=== PATIENT | male | born 1990 | race Caucasian/White ===

== ENCOUNTER 2024-11-14 13:58 | Emergency (ER) | payer OTHER ==
[~2024-11-14] VITALS: Ht 182.9 cm; Wt 65.8 kg
[~2024-11-14 13:58] MED LIST: CEPH500 PO; HYDACE5 PO; IBUP800 PO; NAPR500 PO; PENVK500 PO; PROM25 PO; RXPENVK250 PO; RXPROCODSY PO; RXTRAM50 PO; TRAM50 PO
[2024-11-14] MEDS ORDERED: EPINEPhrine HCl 1 MG/ML 1ML Amp IM ONE (14:40)
[2024-11-14] MEDS ORDERED: EpiNEPhrine 1 MG/1 ML 1ML Vial IM ONE (14:40)
[2024-11-14] MEDS ORDERED: NS 1,000 ML IV SCH ×3 (14:40→17:35)
[2024-11-14] MEDS ORDERED: DiphenhydrAMINE HCl 50 MG/ML 1ML Vial IV ONE ×2 (14:50→17:35)
[2024-11-14] MEDS ORDERED: Famotidine 10 MG/ML 2ML Vial IV ONE (14:50)
[2024-11-14] MEDS ORDERED: Ondansetron HCl 2 MG / ML 2ML Vial IV ONE (14:55)
[2024-11-14 14:57] LABS: Hematocrit 53.5 % (37.0-53.0); Hemoglobin 18.2 g/dL (13.5-17.5); Mean Corpuscular HGB 29.5 pg (26.0-34.0); Mean Corpuscular Volume 87 fL (80-100); Mean Platelet Volume 10.6 fL (9.1-12.4); Platelet Count 315 K/mm3 (150-400); RDW Standard Deviation 38.5 fL (35.1-46.3); Red Blood Cell Count 6.17 M/mm3 (4.30-5.90); White Blood Cell Count 27.59 K/mm3 (4.00-11.30)
[2024-11-14 15:19] LABS: Albumin, Blood 3.5 g/dL (3.4-5.0); Albumin/Globulin Ratio 1.1 (0.8-1.8); Bilirubin, Total 0.5 mg/dL (0.1-1.0); Bun/Creatinine Ratio 8.6 (12.0-20.0); Calcium, Blood 8.6 mg/dL (8.5-10.1); Creatinine, Blood 1.05 mg/dL (0.60-1.20); Globulin, Blood 3.3 g/dL (2.2-4.0); Potassium, Blood 3.8 mmol/L (3.5-5.5); Total Protein, Blood 6.8 g/dL (6.4-8.2)
[2024-11-14 15:29] LABS: Free Thyroxine 1.09 ng/dL (0.70-1.60); Thyroid Stimulating Hormone 2.72 uIU/mL (0.360-4.800); Triiodothyronine, Free 2.94 pg/mL (2.18-3.98)
[2024-11-14 15:33] LABS: CORONAVIRUS COVID-19 AG Negative (NEGATIVE); INFLUENZA A AG Negative (NEGATIVE); INFLUENZA B AG Negative (NEGATIVE)
[2024-11-14 15:34] LABS: BAND PERCENT MAN 1 % (0-8); BASOPHILS PERCENT MAN 0 % (0-2); EOSINOPHILS ABSOLUTE MAN 0.82 K/mm3 (0.00-0.68); EOSINOPHILS PERCENT MAN 3 % (0-6); LYMPHOCYTES ABSOLUTE MAN 5.51 K/mm3 (0.84-5.20); LYMPHOCYTES PERCENT MAN 20 % (21-46); MONOCYTES ABSOLUTE MAN 0.55 K/mm3 (0.16-1.47); MONOCYTES PERCENT MAN 2 % (4-13); NEUTROPHILS ABSOLUTE MAN 20.69 K/mm3 (1.96-9.15); SEG NEUTROPHILS PERCENT MAN 74 % (41-73); TOTAL CELLS COUNTED 100
[2024-11-14] MEDS ORDERED: EPIPEN0.3 MG/0.1 IM (17:26)
[2024-11-14] MEDS ORDERED: CLIN150 PO (17:31)
[2024-11-14 18:30] VITALS: BP 99/67
== END 2024-11-14 18:48 | disposition home or self-care (01) ==
LOC: ER 13:58
PROVIDERS: Student in an Organized Health Care Education/Training Program
DX: T88.6XXA Anaphylactic reaction due to adverse effect of correct drug or medicament properly administered, initial encounter (principal); T36.0X5A Adverse effect of penicillins, initial encounter; F17.210 Nicotine dependence, cigarettes, uncomplicated
CPT/HCPCS: 80053; 83605; 84439; 84443; 84481; 85025; 87428-QW; 96361; 96372-59; 96374; 96375; 96376; 99284-25; J0171; J1200; J2405; J7030